=== PATIENT | male | born 1995 ===

== ENCOUNTER 2017-12-17 16:55 | Emergency (ER) | payer OTHER ==
[2017-12-17 17:02] VITALS: BMI 21.6
--- NOTE | 2017-12-17 17:16 | ED PDOC ---
Arrival/HPI - General Chief Complaint: Psychiatric Evaluation Time Seen by Provider: 12/17/17 16:56 Historian: Patient, Police - History of Present Illness Narrative History of Present Illness (Text): you were treated in the ED today for having stress about parents arguments/discussion for divorce, recent breakup with girlfriend and now made fleeting statements to friend regarding "doesn't want to live like this" and states was taken out of context and he otherwise doesnt want to harm himself or others or have any hallucinations and denies any nausea/vomiting/headache/dizziness/difficulty breathing/chest pain/abdomen pain/numbness/tingling/loss of limb function/pain with urination/drug or alcohol use. Time/Duration: 1-3 hours Symptom Onset: Gradual Symptom Course: Improving Quality: Other (no pain) Past Medical History - Provider Review Nursing Documentation Reviewed: Yes - Travel History Have you recently traveled outside [place] w/in the past 3 mons?: No - Cardiac Hx Cardiac Disorders: No - Pulmonary Hx Respiratory Disorders: No - Neurological Hx Neurological Disorder: No - HEENT Hx HEENT Disorder: No - Renal Hx Renal Disorder: No - Endocrine/Metabolic Hx Endocrine Disorders: No - Hematological/Oncological Hx Blood Disorders: No - Integumentary Hx Dermatological Disorder: No - Musculoskeletal/Rheumatological Hx Musculoskeletal Disorders: No - Gastrointestinal Hx Gastrointestinal Disorders: No - Genitourinary/Gynecological Hx Genitourinary Disorders: No - Psychiatric Hx Bipolar Disorder: Yes Hx Depression: Yes Hx Substance Use: No - Surgical History Hx Tonsillectomy: Yes Family/Social History - Physician Review Nursing Documentation Reviewed: Yes Family/Social History: No Known Family HX Smoking Status: Never Smoked Hx Alcohol Use: No Hx Substance Use: No Allergies/Home Meds Allergies/Adverse Reactions: Allergies No Known Allergies Allergy (Verified 12/17/17 17:02) Home Medications: Home Meds Medication Instructions Recorded Confirmed Divalproex [Depakote ER] 250 mg PO BID 12/17/17 12/17/17 Quetiapine Fumarate [Seroquel] 25 mg PO DAILY 12/17/17 12/17/17 Sertraline [Zoloft] 50 mg PO DAILY 12/17/17 12/17/17 Review of Systems - Review of Systems Constitutional: Normal Eyes: Normal ENT: Normal Respiratory: Normal Cardiovascular: Normal Gastrointestinal: Normal Genitourinary Male: Normal Musculoskeletal: Normal Skin: Normal Neurological: Normal Endocrine: Normal Hemo/Lymphatic: Normal Psychiatric: Depression, Suicidal Ideation Physical Exam Vital Signs Reviewed: Yes Appearance: Positive for: Well-Appearing, Non-Toxic, Comfortable Pain Distress: None Mental Status: Positive for: Alert and Oriented X 3 - Systems Exam Head: Present: Atraumatic, Normocephalic Pupils: Present: PERRL Extroacular Muscles: Present: EOMI Conjunctiva: Present: Normal Ears: Present: Normal Mouth: Present: Moist Mucous Membranes Pharnyx: Present: Normal Nose (External): Present: Atraumatic Nose (Internal): Present: Normal Inspection Neck: Present: Normal Range of Motion Respiratory/Chest: Present: Clear to Auscultation, Good Air Exchange Cardiovascular: Present: Regular Rate and Rhythm Abdomen: No: Tenderness, Distention, Normal Bowel Sounds, Peritoneal Signs, Rebound, Guarding, McBurney's Point Tender, Rovsing's Sign Present, Hernias, Feeding Tubes, Ostomy Tubes, Mass/Organomegaly, Scars, Other Back: Present: Normal Inspection Upper Extremity: Present: Normal Inspection Lower Extremity: Present: Normal Inspection Neurological: Present: GCS=15, CN II-XII Intact, Speech Normal, Motor Func Grossly Intact Skin: Present: Warm, Dry, Normal Color Psychiatric: Present: Alert, Oriented x 3, Normal Concentration, Anxious, Depres sed Mood Medical Decision Making ED Course and Treatment: ou were treated in the ED today for hx of bipolar on depakote/seroquel which you state you are compliant, now having stress about parents arguments/discussion for divorce, recent breakup with girlfriend and now made fleeting statements to friend regarding "doesn't want to live like this" and states was taken out of context and he otherwise doesnt want to harm himself or others or have any hallucinations and denies any nausea/vomiting/headache/dizziness/difficulty breathing/chest pain/abdomen pain/numbness/tingling/loss of limb function/pain with urination/drug or alcohol use. You were otherwise breathing easily, smiling and talking easily, good strength/sensation, alert/oriented, walking, clear [place] gs, no abdomen tenderness, no fever temp 97.8, stable heart rate 78, stable breathing rate 17, excellent oxygen level _98% room air, stable blood pressure 115/65 which we recommend repeat in 2-3 days primary care office to determine further treatment, you have blood tests white blood cell count 11.4, stable blood level hemoglobin 15/platelets 245, stable chemistry, alcohol less than 10 negative, aspirin less than 1 negative, tylenol less than 10 negative, valproic acid 69 in normal range, urine test trace protein/ketones and patient is drinki ng fluids in the ED, urine drug test pending, radiology chest xray no acute, ECG normal sinus rhythm, observation done in the ED with improvement. signed out to Dr. Romero to fu urine drug screen and mental health evaluation. 12/17/17 20:00 12/17/17 20:00 Reassessment Condition: Re-examined, Improved - Lab Interpretations I have reviewed the lab results: Yes - RAD Interpretation Radiology Orders: 12/17/17 17:11 CHEST PORTABLE [RAD] Stat Disposition/Present on Arrival - Present on Arrival Any Indicators Present on Arrival: No History of DVT/PE: No History of Uncontrolled Diabetes: No Urinary Catheter: No History of Decub. Ulcer: No History Surgical Site Infection Following: None - Disposition Have Diagnosis and Disposition been Completed?: Yes Diagnosis: Bipolar 1 disorder Disposition: HOME/ ROUTINE Disposition Time: 18:18 Condition: STABLE Discharge Instructions (ExitCare): Bipolar Disorder Referrals: [facility] [Outside] - Follow up with primary Forms: [employer] (N[place]ian)
[2017-12-17 17:35] VITALS: TEMP 97.8
[2017-12-17 17:40] LABS: BASO # 0.02 K/mm3 (0.0-2.0); BASO % 0.2 % (0.0-3.0); EOS % 0.3 % (1.5-5.0); GRAN # 9.71 (1.4-6.5); HEMOGLOBIN 15.3 g/dL (14.0-18.0); LYMPH # 1.1 (1.2-3.4); LYMPH % 9.4 % (22.0-35.0); MEAN CELL VOLUME 85.7 fl (80.0-105.0); MEAN CORPUSCULAR HEMOGLOBIN 29.9 pg (25.0-35.0); MEAN CORPUSCULAR HGB CONC 34.9 g/dl (31.0-37.0); MEAN PLATELET VOLUME 11.1 fl (7.0-11.0); MONO # 0.6 (0.1-0.6); MONO % 5.1 % (1.0-6.0); RBC 5.12 10^6/uL (3.5-6.1); RED CELL DISTRIBUTION WIDTH 12.2 % (11.5-14.5); WHITE BLOOD COUNT 11.4 10^3/ul (4.5-11.0)
[2017-12-17 17:52] LABS: ALB/GLOB RATIO 1.6 (1.1-1.8); ALBUMIN 4.9 g/dL (3.0-4.8); ALT/SGPT 19 U/L (7-56); AST/SGOT 21 U/L (17-59); BLOOD UREA NITROGEN 9 mg/dL (7-21); CALCIUM 9.5 mg/dL (8.4-10.5); GFR NON-AFRICAN AMERICAN > 60
[2017-12-17 17:53] LABS: ACETAMINOPHEN < 10.0 ug/ml (10.0-20.0); SALICYLATE < 1 mg/dL (2.0-20.0)
[2017-12-17 19:48] LABS: URINE BILIRUBIN NEGATIVE (NEGATIVE); URINE BLOOD NEGATIVE (NEGATIVE); URINE GLUCOSE (UA) NEGATIVE (NEGATIVE); URINE LEUKOCYTE ESTERASE NEGATIVE Leu/uL (NEGATIVE); URINE PROTEIN TRACE mg/dL (<30 mg/dL); URINE UROBILINOGEN 0.2 E.U./dL (<1 E.U./dL)
[2017-12-17 19:50] LABS: URINE APPEARANCE CLEAR (CLEAR); URINE COLOR YELLOW (YELLOW)
[2017-12-17 20:06] LABS: BENZODIAZEPINES, UR NEGATIVE (NEGATIVE)
[2017-12-17 20:07] LABS: BARBITURATES, UR NEGATIVE (NEGATIVE); OPIATES, UR NEGATIVE (NEGATIVE); PHENCYCLIDINE, UR NEGATIVE (NEGATIVE)
--- NOTE | 2017-12-17 20:09 | ED PDOC ---
Physical Exam Vital Signs Temp Pulse Resp BP Pulse Ox 12/17/17 17:00 97.8 F 71 18 115/65 98 Medical Decision Making ED Course and Treatment: 12/17/17 20:09 Patient has been endorsed to me by Dr. Cartagena. Patient brought in for possible suicidal ideation, although patient states what he stated was taken out of context. Currently awaiting follow-up urine drug screen and PES evaluation. 12/18/17 06:38 patient seen by PES screener and has been cleared for discharge. Patient does not require acute hospitalization, does not appear to be an apparent threat to himself or others. - Lab Interpretations Lab Results: 12/17/17 17:24 12/17/17 17:24 Lab Results 12/17/17 19:34: Urine Opiates Screen Negative, Urine Methadone Screen Negative, Ur Barbiturates Screen Negative, Ur Phencyclidine Scrn Negative, Ur Amphetamines Screen Negative, U Benzodiazepines Scrn Negative, U Oth Cocaine Metabols Negative, U Cannabinoids Screen Negative 12/17/17 19:34: Urine Color Yellow, Urine Appearance Clear, Urine pH 7.0, Ur Specific [place] 1.020, Urine Protein Trace H, Urine Glucose (UA) Negative, Urine Ketones Trace H, Urine Blood Negative, Urine Nitrate Negative, Urine Bilirubin Negative, Urine Urobilinogen 0.2, Ur Leukocyte Esterase Negative, Urine RBC Pending, Urine WBC Pending 12/17/17 19:07: Valproic Acid 69 12/17/17 17:24: Alcohol, Quantitative < 10 12/17/17 17:24: Salicylates < 1 L, Acetaminophen < 10.0 L 12/17/17 17:24: Sodium 142, Potassium 3.7, Chloride 104, Carbon Dioxide 26, Anion Gap 16, BUN 9, Creatinine 0.7 L, Est GFR ( Amer) > 60, Est GFR (Non-Af Amer) > 60, Random Glucose 102, Calcium 9.5, Magnesium 2.1, Total Bilirubin 0.6, AST 21, ALT 19, Alkaline Phosphatase 69, Total Protein 7.9, Albumin 4.9 H, Globulin 3.0, Albumin/Globulin Ratio 1.6 12/17/17 17:24: WBC 11.4 H, RBC 5.12, Hgb 15.3, Hct 43.9, MCV 85.7, MCH 29.9, MCHC 34.9, RDW 12.2, Plt Count 245, MPV 11.1 H, Gran % 85.0 H, Lymph % (Auto) 9.4 L, [place] % (Auto) 5.1, Eos % (Auto) 0.3 L, Baso % (Auto) 0.2, Gran # 9.71 H, Lymph # (Auto) 1.1 L, [place] # (Auto) 0.6, Eos # (Auto) 0.0, Baso # (Auto) 0.02 - RAD Interpretation Radiology Orders: 12/17/17 17:11 CHEST PORTABLE [RAD] Stat - Scribe Statement The provider has reviewed the documentation as recorded by the Scribe Haven Cisneros Provider Scribe Provider Scribe Attestation: All medical record entries made by the Scribe were at my direction and personally dictated by me. I have reviewed the chart and agree that the record accurately reflects my personal performance of the history, physical exam, medical decision making, and the department course for this patient. I have also personally directed, reviewed, and agree with the discharge instructions and disposition. Disposition/Present on Arrival - Present on Arrival Any Indicators Present on Arrival: No History of DVT/PE: No History of Uncontrolled Diabetes: No Urinary Catheter: No History of Decub. Ulcer: No History Surgical Site Infection Following: None - Disposition Have Diagnosis and Disposition been Completed?: Yes Diagnosis: Bipolar 1 disorder Disposition: HOME/ ROUTINE Disposition Time: 06:39 Patient Plan: Discharge Patient Problems: Current Active Problems Problem Status Onset Bipolar 1 disorder Acute Condition: STABLE Discharge Instructions (ExitCare): Bipolar Disorder Referrals: [facility] [Outside] - Follow up with primary Forms: [employer] (Sinhala)
[2017-12-17 20:13] LABS: URINE BACTERIA FEW (NEG); URINE RBC NEGATIVE /hpf (0-2)
[2017-12-18 07:13] VITALS: BP 116/89; PULSE 72; RESP 14; O2SAT 99
--- NOTE | 2017-12-18 09:10 | RAD ---
Date of service: 12/17/2017 HISTORY: 22yoM, psych eval COMPARISON: No prior. FINDINGS: LUNGS: No active pulmonary disease. PLEURA: No significant pleural effusion identified, no pneumothorax apparent. CARDIOVASCULAR: Normal. OSSEOUS STRUCTURES: No significant abnormalities. VISUALIZED UPPER ABDOMEN: Normal. OTHER FINDINGS: None. IMPRESSION: No active disease.
--- NOTE | 2017-12-18 09:51 | CARD ---
APPROVED REPORT Date of service: 12/17/2017 EKG Measurement Heart [id number] <Conclusion> Normal sinus rhythm Voltage criteria for left ventricular hypertrophy, probably a normal variant
== END 2017-12-18 07:12 | disposition home or self-care (01) ==
LOC: ED 16:55
DX: F31.9 Bipolar disorder, unspecified (principal)